=== PATIENT | male | born 1970 | race African-American/Black ===

== ENCOUNTER 2018-04-12 06:06 | Emergency (ER) | payer MEDICAID ==
[~2018-04-12] VITALS: Ht 160 cm; Wt 62.0 kg
[2018-04-12] MEDS ORDERED: KETOROLAC 30MG/ML VIAL IV STA (07:52)
[2018-04-12 08:33] LABS: COLOR URINE YELLOW (YELLOW); KETONES URINE NEGATIVE (NEGATIVE); LEUKOCYTE ESTERASE URINE 1+ (NEGATIVE); NITRITE URINE NEGATIVE (NEGATIVE); OCCULT BLOOD URINE 3+ (NEGATIVE); PH URINE 5.5 (4.5-8.0); PROTEIN URINE NEGATIVE (NEGATIVE); SPECIFIC GRAVITY URINE 1.009 (1.005-1.030); UROBILINOGEN URINE 0.2 E.U./dL (0.2-1.0)
[2018-04-12 08:34] LABS: CLARITY URINE CLOUDY (CLEAR)
[2018-04-12 08:35] LABS: EOSINOPHILS % 2.7 % (0.0-5.0); HEMATOCRIT. 46.1 % (42.0-52.0); HEMOGLOBIN. 14.9 g/dL (14.0-18.0); LYMPHOCYTES % 39.2 % (20.0-50.0); MEAN CORPUSCULAR HEMOGLOBIN 25.5 pg (28.0-32.0); MEAN CORPUSCULAR VOLUME 78.7 fL (80.0-94.0); MONOCYTES % 10.6 % (2.0-8.0); NEUTROPHILS % 46.5 % (40.0-76.0); PLATELET 228 x1000/uL (130-400); RED BLOOD CELL COUNT 5.86 mill/uL (4.7-6.1)
[2018-04-12 08:37] LABS: CHLORIDE 110 mEq/L (98-107); PROTHROMBIN TIME 10.5 sec (9.1-11.1)
[2018-04-12] MEDS ORDERED: AZITHROMYCIN 500 MG TABLET PO ONE (09:45)
[2018-04-12] MEDS ORDERED: LIDOCAINE HCL 1% 20ML VIAL (Pyxis) INJ INFIL ONE (09:45)
[2018-04-12] MEDS ORDERED: CEFTRIAXONE SODIUM 250 MG/VIAL IM ONE (09:45)
[2018-04-12 10:29] VITALS: BP 107/62
== END 2018-04-12 10:37 | disposition home or self-care (01) ==
LOC: ER 06:06
DX: N39.0 Urinary tract infection, site not specified (principal); K21.9 Gastro-esophageal reflux disease without esophagitis; Z98.890 Other specified postprocedural states
CPT/HCPCS: 36415; 80053; 81003; 83690; 85025; 85610; 87086; 96372; 96374; 99283; J0696; J1885; J3490